=== PATIENT | female | born 1950 | race African-American/Black ===

== ENCOUNTER 2018-02-24 12:02 | Day surgery (SDC) | payer OTHER ==
[2018-02-24] MEDS ORDERED: FENTAnyl 50 MCG/ML VIAL (14:40)
[2018-02-24] MEDS ORDERED: MIDAZOLAM 1 MG/ML 2 ML INJ ×3 (14:40→14:41)
== END 2018-02-24 16:36 | disposition home or self-care (01) ==
LOC: GIL 12:02
DX: K29.50 Unspecified chronic gastritis without bleeding (principal); K31.9 Disease of stomach and duodenum, unspecified
CPT/HCPCS: 43239; 88305; 88312

== ENCOUNTER 2018-04-01 13:13 | Day surgery (SDC) | payer OTHER ==
[2018-04-01] MEDS ORDERED: FENTAnyl 50 MCG/ML VIAL (16:46)
[2018-04-01] MEDS ORDERED: PROPOFOL 20 ML ×2 (16:46→17:26)
[2018-04-01] MEDS ORDERED: ONDANSETRON 4 MG INJ IV (17:00)
== END 2018-04-01 17:49 | disposition home or self-care (01) ==
LOC: GIL 13:13
DX: Z12.11 Encounter for screening for malignant neoplasm of colon (principal); K64.8 Other hemorrhoids; I10 Essential (primary) hypertension
CPT/HCPCS: 45378